=== PATIENT | male | born 1965 ===

== ENCOUNTER 2018-01-06 13:19 | Emergency (ER) | payer BC ==
--- NOTE | 2018-01-06 15:31 | ED PDOC ---
HPI: Male Pain Time Seen by Provider: 01/06/18 14:29 Chief Complaint (Nursing): Male Genitourinary Chief Complaint (Provider): genitourinary pain History Per: Patient, Obstetrics Technician History/Exam Limitations: language barrier Onset/Duration Of Symptoms: Days (3) Current Symptoms Are (Timing): Still Present Severity: Mild Quality Of Discomfort: Dull, Aching Alleviating Factors: None Past Medical History Reviewed: Historical Data, Nursing Documentation, Vital Signs Vital Signs: Last Vital Signs Temp 98.2 F 01/06/18 13:40 Pulse 74 01/06/18 13:40 Resp 18 01/06/18 13:40 BP 116/76 01/06/18 13:40 Pulse Ox 99 01/06/18 13:40 - Medical History PMH: CHF - Family History Family History: States: Unknown Family Hx - Immunization History Hx Tetanus Toxoid Vaccination: No Hx Influenza Vaccination: No Hx Pneumococcal Vaccination: No - Home Medications Home Medications: Ambulatory Orders Medication Instructions Recorded Ibuprofen [Motrin] 600 mg PO Q8 PRN #6 tab 08/23/15 Doxycycline Monohydrate 100 mg PO BID #20 tablet 01/06/18 Metronidazole 500 mg PO BID #14 tablet 01/06/18 - Allergies Allergies/Adverse Reactions: Allergies Allergy/AdvReac Type Severity Reaction Status Date / Time No Known Allergies Allergy Verified 08/23/15 12:51 Review of Systems ROS Statement: Except As Marked, All Systems Reviewed And Found Negative Genitourinary Male: Positive for: Scrotal Pain, Other (pain in peritoneum radiating down both legs). Negative for: Hematuria Physical Exam - Reviewed Nursing Documentation Reviewed: Yes Vital Signs Reviewed: Yes - Physical Exam Appears: Positive for: Well, No Acute Distress. Negative for: Uncomfortable, In Acute Distress Head Exam: Positive for: ATRAUMATIC, NORMAL INSPECTION, NORMOCEPHALIC Skin: Positive for: Normal Color Neck: Positive for: Normal, Painless ROM, Supple Cardiovascular/Chest: Positive for: Regular Rate, Rhythm. Negative for: Chest Non Tender, Edema, Murmur, Bradycardia, Tachycardia, Ectopy, Friction Rub Respiratory: Positive for: Normal Breath Sounds. Negative for: Decreased Breath Sounds, Accessory Muscle Use, Crackles, Rales, Rhonchi, Stridor, Wheezing , Respiratory Distress, Plerual Rub Pulses-Carotid (L): 2+ Pulses-Carotid (R): 2+ Pulses-Radial (L): 2+ Pulses-Radial (R): 2+ Gastrointestinal/Abdominal: Positive for: Normal Exam, Bowel Sounds, Soft. Negative for: Tenderness Male Genital Exam: Positive for: normal genitalia, no hernia, inguinal tenderness. Negative for: epididymal tenderness, erythema, hernia mass, lesions , scrotum tenderness (R), scrotum tenderness (L), testicular tenderness (R), testicular tenderness (L), urethral discharge - Laboratory Results Result Diagrams: 01/06/18 15:47 01/06/18 15:47 - ECG O2 Sat by Pulse Oximetry: 99 Medical Decision Making Medical Decision Making: r/o proctitis over prostitis CT with contrast CT results normal with Focal rectal wall thickening which may represent mild proctitis. No discrete masses or lesions identified in the colon. Consistent with proctitis rx: metrondiaz and doxy Disposition - Clinical Impression Clinical Impression: Proctitis - Patient ED Disposition Is Patient to be Admitted: No Doctor Will See Patient In The: Office Counseled Patient/Family Regarding: Studies Performed, Diagnosis, Need For Followup, Rx Given - Disposition Referrals: [facility] [Outside] Disposition: Routine/Home Disposition Time: 18:11 Condition: GOOD Prescriptions: Doxycycline Monohydrate 100 mg PO BID #20 tablet Metronidazole 500 mg PO BID #14 tablet Instructions: Proctitis Forms: [facility] (British) Print Language: MONTENEGRIN
[2018-01-06 15:52] LABS: BASO % 0.8 % (0.0-2.0); EOS # 0.1 K/uL (0.0-0.7); EOS % 2.5 % (0.0-4.0); LYMPH # 1.5 K/uL (1.0-4.3); LYMPH % 26.4 % (20.0-40.0); MEAN CELL VOLUME 91.4 fl (80.0-94.0); MEAN CORPUSCULAR HEMOGLOBIN 30.9 pg (27.0-31.0); MEAN CORPUSCULAR HGB CONC 33.8 g/dL (33.0-37.0); MEAN PLATELET VOLUME 7.8 fl (7.2-11.7); MONO # 0.5 K/uL (0.0-0.8); MONO % 8.8 % (0.0-10.0); NEUT # 3.6 K/uL (1.8-7.0); NEUT % 61.5 % (50.0-75.0); RBC 4.52 Mil/uL (4.40-5.90); RED CELL DISTRIBUTION WIDTH 13.9 % (11.5-14.5); WHITE BLOOD COUNT 5.8 K/uL (4.8-10.8)
[2018-01-06 15:58] LABS: URINE BACTERIA RARE (<OCC); URINE BILIRUBIN NEGATIVE (NEGATIVE); URINE CLARITY SLIGHTY-CLOUDY (Clear); URINE COLOR YELLOW (YELLOW); URINE GLUCOSE (UA) NEG (Normal); URINE HYALINE CAST 0-2 /hpf (0-2); URINE LEUKOCYTE ESTERASE NEG Leu/uL (Negative); URINE PROTEIN 30 mg/dL (NEGATIVE)
[2018-01-06 16:07] LABS: URINE BLOOD TRACE-INTACT (NEGATIVE)
[2018-01-06 16:09] LABS: ALB/GLOB RATIO 1.2 (1.0-2.1); ALBUMIN 4.1 g/dL (3.5-5.0); ALT/SGPT 39 U/L (21-72); AMYLASE 102 U/L (30-110); AST/SGOT 30 U/L (17-59); BLOOD UREA NITROGEN 17 mg/dl (9-20); CALCIUM 8.9 mg/dL (8.4-10.2); GFR AFRICAN-AMERICAN > 60; GFR NON-AFRICAN AMERICAN > 60; LIPASE 187 U/L (23-300)
[2018-01-06] MEDS ORDERED: Iohexol 300 100 ML IJ ONE (16:10)
[2018-01-06] MEDS ORDERED: Sodium Chloride 0.9% 100 ML ONE (16:11)
--- NOTE | 2018-01-06 17:26 | CT ---
PROCEDURE: CT Abdomen and Pelvis with contrast HISTORY: lower abdomen and rectal pain COMPARISON: None. TECHNIQUE: Contrast dose: 95 cc Omnipaque 300 Radiation dose: Total exam DLP = 502.8 none mGy-cm. This CT exam was performed using one or more of the following dose reduction techniques: Automated exposure control, adjustment of the mA and/or kV according to patient size, and/or use of iterative reconstruction technique. FINDINGS: LOWER THORAX: Unremarkable. LIVER: Hepatic steatosis. No focal masses. No intrahepatic bile duct dilatation or perihepatic ascites. GALLBLADDER AND BILE DUCTS: Unremarkable. PANCREAS: Unremarkable. No gross lesion or ductal dilatation. SPLEEN: Unremarkable. ADRENALS: Unremarkable. No mass. KIDNEYS AND URETERS: Unremarkable. No hydronephrosis. No solid mass. VASCULATURE: Unremarkable. No aortic aneurysm. BOWEL: Focal rectal wall thickening which may represent mild proctitis. No discrete masses or lesions identified in the colon. APPENDIX: Normal appendix. PERITONEUM: Unremarkable. No free fluid. No free air. LYMPH NODES: Unremarkable. No enlarged lymph nodes. BLADDER: Unremarkable. REPRODUCTIVE: Mildly enlarged and asymmetrical seminal vesicles. BONES: No acute fracture. OTHER FINDINGS: None. IMPRESSION: Focal thickening of the wall of the rectum, likely mild proctitis. Additional benign and/or incidental findings described above.
[2018-01-06 18:30] VITALS: BP 128/78; PULSE 80; RESP 19; TEMP 78; O2SAT 98
== END 2018-01-06 18:30 | disposition home or self-care (01) ==
LOC: H.ER 13:19
DX: K62.89 Other specified diseases of anus and rectum (principal); I50.9 Heart failure, unspecified
CPT/HCPCS: 74177; 80053; 81003; 82150; 83690; 85025; 87086; 99282; Q9967